=== PATIENT | female | born 2005 | race Two or more races ===

== ENCOUNTER 2025-01-18 00:57 | Emergency (ER) | payer MEDICAID, SELFPAY ==
[2025-01-18 00:58] VITALS: BMI 15.3
[2025-01-18 01:33] VITALS: BP 124/71; PULSE 89; RESP 18; TEMP 37.4; O2SAT 98
[2025-01-18] MEDS: ONDANSETRON ODT 4 MG TABRAP PO (02:20)
[2025-01-18 03:20] VITALS: BP 118/72; PULSE 76; RESP 16; TEMP 36.7; O2SAT 98
--- NOTE | 2025-01-18 04:35 | EDNOTE_ITS ---
Nausea/Vomit./Diarrhea-RME/HPI General Chief complaint: Abdominal Pain Stated complaint: ABD PAIN/ VOMITING X 1WK Time Seen by Provider: 01/18/25 02:06 Arrival date/time: 01/18/25 00:57 19F with no significant PMH presents to ED with several months of intermittent ab/pelvic pain and N/V. Patient has seen OBGYN who has done CT and US w/o any diagnosis. Patient also had negative tests for H.pylori. Patient denies drug/alcohol use and is currently on two forms of control. Patient came in today because she had some N/V today that had some red blood in it. Patient has no ab pain currently, but the blood scared her. Limitations: no limitations Related Data Previous Rx's ?Medication ?Instructions ?Recorded ondansetron 4 mg disintegrating 4 mg PO Q8H PRN nausea and 01/18/25 tablet vomiting #14 tabs Allergies Allergy/AdvReac Type Severity Reaction Status Date / Time No Known Allergies Allergy Verified 06/28/24 14:40 Review of Systems Review of Systems Systems Reviewed: All systems reviewed, normal except as documented Constitutional Constitutional: Reports system reviewed and no additional complaints, except as documented, Denies fever(s) and Denies headache(s) ENT Ears, Nose, Mouth, and Throat: Denies disequilibrium and Denies headache(s) Cardiovascular Cardiovascular: Reports system reviewed and no additional complaints, except as documented, Denies chest pain and Denies dyspnea Respiratory Respiratory: Reports system reviewed and no additional complaints, except as documented, Denies cough and Denies dyspnea Gastrointestinal Gastrointestinal: Reports system reviewed and no additional complaints, except as documented, Reports as per HPI, Denies abdominal pain, Reports nausea and Reports vomiting Neurologic Neurologic: Reports system reviewed and no additional complaints, except as documented, Denies confusion, Denies disequilibrium and Denies headache(s) Psychiatric Psychiatric: Denies confusion Past Medical History Past Medical History CARDIAC: Negative Cardiac Disorders or Congestive Heart Failure RESPIRATORY: Negative Chronic Obstructive Pulmonary Disease (COPD) or Asthma GENITOURINARY: Negative Renal Disease ENDOCRINE: Negative Diabetes Mellitus Type 1 or Diabetes Mellitus Type 2 HEMATOLOGIC: Negative Sickle Cell Disease Social History SMOKING STATUS: Never smoker SUBSTANCE USE: does not use ED Exam General Limitations: Present no limitations General appearance: Present alert and in no apparent distress Head Head exam: Present atraumatic Eye Eye exam: Present normal appearance, PERRL and EOMI ENT ENT exam: Present normal exam, normal oropharynx and mucous membranes moist Neck Neck exam: Present normal inspection, full ROM and trachea midline Chest Chest inspection: Present normal inspection and symmetric chest wall rise Respiratory Respiratory exam: Present normal lung sounds bilaterally Cardiovascular Cardiovascular exam: Present regular rate, normal rhythm and normal heart sounds Abdominal Exam Abdominal exam: Present soft and normal bowel sounds Extremities Exam Extremities exam: Present normal inspection and full ROM Back Exam Back exam: Present normal inspection and full ROM Neurological Exam Neurological exam: Present alert, oriented X3 and CN II-XII intact Psychiatric Psychiatric exam: Present normal affect and normal mood Skin Skin exam: Present warm, dry, intact and normal color Course Quality Measures none Orders Category Date Time Status Ondansetron Odt [Zofran Odt] Med 01/18/25 02:06 Discontinued 4 mg PO X1 ONE Vital Signs Vital signs: Vital Signs Temperature 99.4 F 01/18/25 01:33 Pulse Rate 89 01/18/25 01:33 Respiratory Rate 18 01/18/25 01:33 Blood Pressure 124/71 01/18/25 01:33 Pulse Oximetry (%) 98 01/18/25 01:33 Oxygen Delivery Method Room Air 01/18/25 01:33 O2 at 98% on RA and WNLs Nausea/Vomiting/Diarrhea MDM Narrative MDM Narrative:: 19F with no significant PMH presents to ED with several months of intermittent ab/pelvic pain and N/V. Patient has seen OBGYN who has done CT and US w/o any diagnosis. Patient also had negative tests for H.pylori. Patient denies drug/alcohol use and is currently on two forms of control. Patient came in today because she had some N/V today that had some red blood in it. Patient has no ab pain currently, but the blood scared her. Physical exam reveals no ab tenderness. Normal WOB. Speech normal. Patient is afebrile, calm, and alert. PO challenge passed and patient felt much better. Counseled to see GI doctor. Blood likely from gastritis/gastric ulcer. Patient data External records reviewed:: [facility] previous records Clinical information provided by:: patient Social determinants that could affect healthcare access:: none Patient has the following chronic illnesses:: none How is presenting disease/condition affected by chronic disease/condition?: no chronic disease Evaluation data The following diagnostics were reviewed and interpreted by me:: other (specify) (none) Lab and/or radiology exams considered but not ordered:: not ordered Interpretation Summary: n/a Medications / Prescriptions Medications / Prescriptions considered but not ordered:: ordered Medication administrations:: Medication Administration History Discontinued Medications Ondansetron HCl (Ondansetron Odt 4 Mg Tabrap) 4 mg PO X1 ONE; Protocol Stop: 01/18/25 02:07 Last Admin: 01/18/25 02:20 Dose: 4 mg Documented By: CB above Consultations Consultation(s) initiated? (list below): No Diagnosis Nausea Differential Diagnosis: traveler's diarrhea, food poisoning, gastroenteritis, clostridium difficile infection, drug-induced nausea and vomiting, dehydration and other (gastritis) Most likely diagnosis given after review of the tests above:: gastritis Admission Indicated Admission indicated?: not indicated Admission Request Was there a request for admission?: No Disposition Plan Disposition Plan: Discharge Discharge Attestation Discharge Attestation: The patient and all family members were given an opportunity to ask questions and understood the discharge instructions. Discharge instructions specifically effects, indications for sooner follow up or return to the emergency department, and the expected course of current diagnosis. Patient condition: Stable Discharge Plan Plan Patient Disposition: HOME (Self Care) Discharge Disposition comment: Stable Prescriptions/Referrals Prescriptions/Med Rec: New ondansetron 4 mg tablet,disintegrating 4 mg PO Q8H PRN (Reason: nausea and vomiting) Qty: 14 0RF Referrals: Temporary Provider,ED [Primary Care Provider] - In 1 week Problem List Clinical Impression: Gastritis Patient/Caregiver Discharge Instructions Education Materials: ED Gastritis (Adult) Additional Instructions: Please follow-up with PCP within 24-48 hours and return immediately if symptoms worsen. Follow-up with PCP for possible referral to GI. Print Language: Citizen Of [place] Stand Alone Forms: Patient Portal Info Letter EVERETTE/SCHUYLER Supervising Physician EVERETTE/SCHUYLER Supervising Physician: Dr. Murphy
== END 2025-01-18 03:22 | disposition home or self-care (01) ==
PROVIDERS: Emergency Provider Emergency Medicine
DX: K29.70 Gastritis, unspecified, without bleeding (principal)
CPT/HCPCS: 99282; Q0162

== ENCOUNTER 2025-04-02 22:30 | Emergency (ER) | payer MEDICAID, SELFPAY ==
[2025-04-02 23:28] VITALS: BP 109/69; PULSE 115; RESP 19; TEMP 37.7; O2SAT 99
[2025-04-02 23:57] LABS: Strep A Rapid Positive (Negative)
--- NOTE | 2025-04-03 01:09 | PD.EDADULT ---
ED General RME/HPI General Chief complaint: Dental/Oral/Throat Stated complaint: SORE THROAT Time Seen by Provider: 04/03/25 01:02 Arrival date/time: 04/02/25 22:30 RME / HPI RME / HPI narrative: 19-year-old female presents to the ED with a complaint of headache, fever, and sore throat. Symptoms began approximately 3 days with a sore throat becoming very severe today. She is having difficulty swallowing but is able to swallow her own oral secretions. No others are ill with similar symptoms. Related Data Previous Rx's ?Medication ?Instructions ?Recorded ondansetron 4 mg disintegrating 4 mg PO Q8H PRN nausea and 01/18/25 tablet vomiting #14 tabs amoxicillin 875 mg-potassium 1 tab PO BID Streptococcal 04/03/25 clavulanate 125 mg tablet pharyngitis #20 tabs ibuprofen 600 mg tablet 600 mg PO Q8H PRN fever or pain 04/03/25 #30 tabs Allergies Allergy/AdvReac Type Severity Reaction Status Date / Time No Known Allergies Allergy Verified 04/02/25 22:31 Review of Systems Review of Systems Systems Reviewed: All systems reviewed, normal except as documented Past Medical History Past Medical History CARDIAC: Negative Cardiac Disorders or Congestive Heart Failure RESPIRATORY: Negative Chronic Obstructive Pulmonary Disease (COPD) or Asthma GENITOURINARY: Negative Renal Disease ENDOCRINE: Negative Diabetes Mellitus Type 1 or Diabetes Mellitus Type 2 HEMATOLOGIC: Negative Sickle Cell Disease Social History SMOKING STATUS: Never smoker SUBSTANCE USE: does not use ED Exam Narrative Physical exam: A&O, febrile and non-toxic appearing 19-year-old female, no acute distress. TMs are without erythema. Nares are pale and boggy. Pharynx is with erythema and tonsillar exudate. Neck is supple, tender anterior cervical chain adenopathy. Lung sounds are clear, tachycardia, Abdomen is soft and nontender. Moves all extremities well. Course Course Course Narrative: COVID and influenza swabs are negative. Rapid strep screen is positive. Patient was given Tylenol 1 g p.o. and ibuprofen 600 mg p.o. Patient was also given Augmentin 875 mg p.o. prior to discharge. Quality Measures none Orders Category Date Time Status Bedside COVID-19 Antigen Test NOW Care 04/02/25 23:29 Active Bedside Influenza A&B Antigen Test NOW Care 04/02/25 23:31 Completed Strep A Rapid Stat Lab 04/02/25 23:32 Completed Vital Signs Vital signs: Vital Signs Temperature 100 F 04/02/25 23:28 Pulse Rate 115 H 04/02/25 23:28 Respiratory Rate 19 04/02/25 23:28 Blood Pressure 109/69 04/02/25 23:28 Pulse Oximetry (%) 99 04/02/25 23:28 Oxygen Delivery Method Room Air 04/02/25 23:28 Discharge Plan Plan Patient Disposition: HOME (Self Care) Discharge Disposition comment: Stable and improved Prescriptions/Referrals Prescriptions/Med Rec: New amoxicillin-pot clavulanate 875-125 mg tablet 1 tab PO BID Qty: 20 0RF ibuprofen 600 mg tablet 600 mg PO Q8H PRN (Reason: fever or pain) Qty: 30 0RF No Action ondansetron 4 mg tablet,disintegrating 4 mg PO Q8H PRN (Reason: nausea and vomiting) Qty: 14 0RF Referrals: Jose Guadalupe Friedman [Primary Care Provider] - In 1 week Problem List Clinical Impression: Acute streptococcal pharyngitis Patient/Caregiver Discharge Instructions Education Materials: ED Pharyngitis, Strep (Confirmed) Additional Instructions: Take the antibiotics as prescribed and complete the course even though you may be feeling better. Gargle with warm salt water to help with the pain. Keep yourself hydrated as this will lessen the severity of pain. Follow-up with your primary care physician in 24 to 48 hours. Return to the ED for any new or worsening symptoms. Print Language: Spanish Stand Alone Forms: Kait Award Info., Patient Portal Info Letter PA/RATE ENGINEER Supervising Physician PA/SCHUYLER Supervising Physician: Dr. Tse [facility] Narrative [facility] hospital course: Symptoms, exam and diagnostic studies are consistent with: Acute streptococcal pharyngitis. Patient was discharged home in stable condition. Patient/family advised to follow-up with their PCP in 24-48 hours. Encouraged to return to the ED for any new or worsening symptoms. Procedures done or offered: Tylenol, ibuprofen, Augmentin Clinical Information Provided by patient Medical Records Reviewed None N/A Meds/Rx Considered, not Ordered None Describe details: N/A Labs/Rad/Tests considered, not Ordered None Describe details: N/A Chronic Illness/Social Conditions which may negatively complicate care or outcome(s)-explain: None or not applicable EKG EKG not done Lab Interpretation Labs: interpreted by va Lab(s) interpretation(s): As noted above Imaging Imaging interpretation: none Provider imaging interpretation(s): N/A Radiology reports / interpretation(s): N/A Medication Administration(s) As noted above Diagnosis Differential diagnosis: COVID, influenza, viral URI, strep pharyngitis Differential dx and/or dx ruled out: COVID, influenza Most likely dx, and/or detailed dx discussion: Acute streptococcal pharyngitis Dispositon Disposition: Discharge Home Disposition comments: Patient is stable for discharge
[2025-04-03] MEDS: ACETAMINOPHEN 500 MG TABLET 1000 MG PO (01:34)
[2025-04-03] MEDS: AMOXICILLIN/POT CLAV 875 TABLET 1 TAB PO (01:35)
[2025-04-03] MEDS: IBUPROFEN TAB 600 MG TABLET PO (01:35)
[2025-04-03 02:05] VITALS: RESP 18
== END 2025-04-03 02:08 | disposition home or self-care (01) ==
PROVIDERS: Emergency Provider Emergency Medicine; PCP Family Medicine
DX: J02.0 Streptococcal pharyngitis (principal)
CPT/HCPCS: 87400; 87651; 87811; 99283; A9270

== ENCOUNTER 2025-08-10 07:11 | Emergency (ER) | payer MEDICAID, SELFPAY ==
[2025-08-10 07:31] VITALS: BP 123/86; PULSE 89; RESP 18; TEMP 36.9; O2SAT 99; BMI 15.3
--- NOTE | 2025-08-10 07:43 | PD.EDRME ---
Rapid Medical Screening Exam [facility] Arrival date/time: 08/10/25 07:11 This is a 20-year-old female that comes into the emergency room with complaints of nausea vomiting. Patient states that she first thought she had food poisoning but family insisted that she come to the emergency room to be evaluated. Patient has some mild generalized abdominal pain. Patient denies past medical history. Patient's states her last menstrual period was approximately 3 to 4 months ago. Patient states she does not think she is because she is on 2 forms of control. I have greeted and performed a focused initial assessment of this patient. Initial appropriate labs ordered at this time. A comprehensive ED assessment and evaluation of the patient and analysis of all test and completion of medical decision making process will be conducted by additional ED provider. Chief Complaint: Abdominal Pain Time Seen by Provider: 08/10/25 07:19 Vital signs: Vital Signs Temperature 98.4 F 08/10/25 07:31 Pulse Rate 89 08/10/25 07:31 Respiratory Rate 18 08/10/25 07:31 Blood Pressure 123/86 H 08/10/25 07:31 Pulse Oximetry (%) 99 08/10/25 07:31 Oxygen Delivery Method Room Air 08/10/25 07:31 Exam: Alert and oriented, breathing even and unlabored, skin warm and dry. Clinical Impression: Abdominal pain
[2025-08-10 07:54] LABS: Collection Type, Urine Voided
[2025-08-10 07:59] LABS: Basophils # (Auto) 0.0 Thou/mm3 (0.0-0.2); Basophils % (Auto) 0 % (0-2.5); Eosinophils # (Auto) 0.3 Thou/mm3 (0.0-0.5); Eosinophils % (Auto) 3 % (0-10); Hematocrit 38.7 % (36.0-46.0); Hemoglobin 12.6 g/dL (12.0-16.0); Immature Granulocytes Auto 0.03 Thou/mm3 (0.00-0.00); Lymphocytes # (Auto) 1.7 Thou/mm3 (1.0-4.8); Lymphocytes % (Auto) 19 % (10-50); Mean Corpuscular HGB Conc 32.6 g/dl (31.0-37.0); Mean Corpuscular Hemoglobin 26.5 pg (25.0-35.0); Mean Corpuscular Volume 81 fL (80-100); Monocytes # (Auto) 0.6 Thou/mm3 (0.0-0.8); Monocytes % (Auto) 7 % (0-12); Neutrophils # (Auto) 6.3 Thou/mm3 (1.8-7.7); Neutrophils % (Auto) 71 % (37-80); Nucleated Red Blood Cell # 0.00 Thou/mm3 (0.00-0.00); Nucleated Red Blood Cell % 0 /100 WBC (0); Platelet Count 204 Thou/mm3 (140-440); RDW Standard Deviation 41.4 fL (36.4-46.3); Red Blood Count 4.76 Miln/mm3 (4.00-5.20); White Blood Count 8.9 Thou/mm3 (3.6-11.0)
[2025-08-10 08:01] LABS: HCG Qualitative,Urine Negative
[2025-08-10 08:14] LABS: Amphetamine/Methamp Scrn,U Negative (Negative); Barbiturate Screen,Urine Negative (Negative); Benzodiazepines Screen,Urine Negative (Negative); Benzoylecgonine Screen, Ur Negative (Negative); Fentanyl Screen,Urine Negative (Negative); Opiate Screen,Urine Negative (Negative); THC Screen,Urine Negative (Negative)
[2025-08-10] MEDS: ONDANSETRON ODT 4 MG TABRAP PO (08:14)
[2025-08-10 08:29] LABS: Alanine Aminotransferase 8 U/L (10-49); Albumin, Serum 5.1 gm/dL (3.5-5.0); Albumin/Globulin Ratio 1.7 (1.2-2.2); Alkaline Phosphatase 84 U/L (46-116); Anion Gap 10 (7-16); Aspartate Amino Transferase 15 U/L (0-34); BUN/Creatinine Ratio 8 Ratio (12-20); Bilirubin,Total 0.7 mg/dL (0.3-1.2); Blood Urea Nitrogen 7 mg/dL (9-23); Calcium 9.3 mg/dL (8.3-10.6); Calcium (Corrected) 9.3 mg/dL (8.5-10.1); Carbon Dioxide 26.1 mMol/L (20.0-31.0); Chloride 107 mMol/L (98-107); Creatinine (Component) 0.9 mg/dL (0.6-1.3); Estimated Creatinine Clearance 67.3 mL/min (>60); Globulin 3.0 gm/dL (2.3-3.5); Glucose 109 mg/dL (74-106); Lipase 30 U/L (12-53); Osmolality,Calculated 283 (275-295); Potassium 3.5 mMol/L (3.4-5.1); Sodium 143 mMol/L (136-145); Total Protein 8.1 gm/dL (5.7-8.2); eGFR > 60 See Note
[2025-08-10 08:41] LABS: Bilirubin,Urine Negative (Negative); Blood,Urine 1+ (Negative); Clarity,Urine Clear (Clear/Hazy); Color,Urine Yellow (Lt Yel-Yel); Culture Indicated,Urine Not Indicated; Glucose, Urine Negative (Negative); Ketones,Urine Negative (Negative); Leukocyte Esterase,Urine Negative (Negative); Nitrite,Urine Negative (Negative); PH,Urine 6.0 (5.0-7.0); Protein,Urine Trace (Neg - Trace); RBC,Urine 2 /hpf (0-3); Specific Gravity,Urine 1.027 (1.001-1.035); Squamous Epithelial Cell,Urine 3 /hpf (0-5); Urobilinogen,Urine 2.0 mg/dL (0.0-1.0); WBC,Urine 3 /hpf (0-5)
--- NOTE | 2025-08-10 10:08 | PC.NURSE ---
PATIENT WALKED OUT OF ED WITH FAMILY MEMBER AT 0930.
== END 2025-08-10 10:10 | disposition left against medical advice (07) ==
PROVIDERS: Emergency Provider Nurse Practitioner Family; PCP Family Medicine
DX: R11.2 Nausea with vomiting, unspecified (principal); R10.84 Generalized abdominal pain; Z53.29 Procedure and treatment not carried out because of patient's decision for other reasons
CPT/HCPCS: 36415; 80053; 80307; 81001; 81025; 83690; 85025; 99282; Q0162